=== PATIENT | male | born 1985 | race Caucasian/White ===

== ENCOUNTER 2016-11-27 10:17 | Emergency (ER) | payer SELFPAY ==
[~2016-11-27] VITALS: Ht 177.8 cm; Wt 84.0 kg
[2016-11-27] MEDS ORDERED: FOLIC ACID 1 MG, THIAMINE HCL 100 MG, MVI, ADULT NO.1 10 ML in DEXTROSE 5% WATER 1,000 ML IV ONE ×4 (11:00)
[2016-11-27 11:44] LABS: BASOPHILS % 0.3 % (0.0-2.0); HEMATOCRIT. 39.7 % (42.0-52.0); HEMOGLOBIN. 13.8 g/dL (14.0-18.0); LYMPHOCYTES % 34.4 % (20.0-50.0); MEAN CORPUSCULAR HEMOGLOBIN 28.5 pg (28.0-32.0); MEAN CORPUSCULAR VOLUME 81.8 fL (80.0-94.0); MEAN PLATELET VOLUME 9.5 fl (7.4-10.4); MONOCYTES % 2.5 % (2.0-8.0); NEUTROPHILS % 61.8 % (40.0-76.0); PLATELET 247 x1000/uL (130-400); RED BLOOD CELL COUNT 4.86 mill/uL (4.7-6.1); RED CELL DISTRIBUTION WIDTH 14.8 % (11.6-14.6)
[2016-11-27 11:54] LABS: PARTIAL THROMBOPLASTIN TIME 29.2 sec (23.4-31.0); PROTHROMBIN TIME 10.5 sec (9.4-11.6)
[2016-11-27 11:55] LABS: CHLORIDE 110 mEq/L (98-107)
[2016-11-27 12:04] LABS: CARBON DIOXIDE 22 mEq/L (21-32)
[2016-11-27 12:26] LABS: ETHANOL BLOOD 372 mg/dL
[2016-11-27 14:06] LABS: *AMPHETAMINES SCREEN URINE NEGATIVE (NEGATIVE); *BARBITURATES SCREEN URINE NEGATIVE (NEGATIVE); *BENZODIAZEPINES SCREEN URINE NEGATIVE (NEGATIVE); *COCAINE SCREEN URINE NEGATIVE (NEGATIVE); CANNABINOID URINE SCREEN NEGATIVE (NEGATIVE); METHADONE URINE SCREEN NEGATIVE (NEGATIVE); OPIATES URINE SCREEN NEGATIVE (NEGATIVE); PHENCYCLIDINE URINE SCREEN NEGATIVE (NEGATIVE)
[2016-11-27] MEDS ORDERED: AMMONIA INHALATION 1EA INH ONE (15:42)
[2016-11-27 17:33] VITALS: BP 97/63
== END 2016-11-27 18:13 | disposition home or self-care (01) ==
LOC: ER 10:17 → EDBD 10:17 → ER 18:13
DX: T51.0X1A Toxic effect of ethanol, accidental (unintentional), initial encounter (principal); G92 Toxic encephalopathy; F17.210 Nicotine dependence, cigarettes, uncomplicated; Y92.488 Other paved roadways as the place of occurrence of the external cause; E87.8 Other disorders of electrolyte and fluid balance, not elsewhere classified; R73.9 Hyperglycemia, unspecified
CPT/HCPCS: 36415; 70450; 80053; 80305; 80307; 80329; 85025; 85610; 85730; 93005; 96365; 99285; G0482; J3411; J3490; J7070